=== PATIENT | male | born 1955 | race Caucasian/White ===

== ENCOUNTER → 2022-10-05 09:13 | Outpatient (CLI) | payer MEDICARE, OTHER, SELFPAY ==
--- NOTE | 2022-10-05 09:16 | DI.RAD.S_ITS ---
PROCEDURE: XR LUMBAR SPINE MIN 4V INDICATIONS: BACK PAIN TECHNIQUE: 5 views of the lumbar spine were acquired, including bilateral oblique views. COMPARISON: [facility], CR, XR LUMBAR SPINE 2 OR 3 VIEWS, 06/07/2018, 14:04. [facility], MR, MR LUMBAR SPINE WITHOUT CONTRAST, 12/10/2020, 14:28. FINDINGS: Bones: 6 rsp-vxr-[id number] vertebrae are present. In keeping with the numbering system used by are x-ray and MRI, the 2nd emh-mkm-ipmkevx lumbar type vertebra is referred as L1. There is grade 1 anterolisthesis of L5 on S1. No vertebral body compression fractures. No suspicious bony lesions. Degenerative disc disease, moderate to severe at L2-L3 and L5-S1, [id number] at other levels. Moderate facet arthropathy at L3-L4, L4-L5 and L5-S1. Soft tissues: Overlying bowel gas pattern is normal. No suspicious soft tissue calcifications. Oblique images: No pars defects. IMPRESSION: 1. Transitional anatomy with 6 srp-ysa-egbyqqn lumbar type vertebrae. In keeping with the numbering system used by prior examinations, the 2nd non rib-bearing lumbar type vertebra is referred to as L1. 2. Multilevel degenerative disc and facet disease, most pronounced at L2-L3 and L5-S1. 3. Grade 1 anterolisthesis of L5 on S1. Dictated by: Magdiel Stoll M.D. on 10/05/2022 at 11:45 Approved by: Magdiel Stoll M.D. on 10/05/2022 at 11:58
== END ==
PROVIDERS: PCP Family Medicine; Referring Provider Physical Medicine & Rehabilitation; Visit Provider Physical Medicine & Rehabilitation
DX: M51.36 Other intervertebral disc degeneration, lumbar region (principal); M51.37 Other intervertebral disc degeneration, lumbosacral region; M47.816 Spondylosis without myelopathy or radiculopathy, lumbar region; M47.817 Spondylosis without myelopathy or radiculopathy, lumbosacral region; M43.17 Spondylolisthesis, lumbosacral region; M54.9 Dorsalgia, unspecified; M48.062 Spinal stenosis, lumbar region with neurogenic claudication; M51.26 Other intervertebral disc displacement, lumbar region; G89.29 Other chronic pain
CPT/HCPCS: 72110; 99214